=== PATIENT | male | born 1960 | race Caucasian/White ===

== ENCOUNTER 2021-09-24 08:14 | Emergency (ER) | payer SELFPAY ==
[~2021-09-24] VITALS: Ht 185.4 cm; Wt 77.1 kg
[2021-09-24 08:57] LABS: BASO % 0.5 % (0.0-1.0); EOS # 0.1 10*3/uL (0.0-0.4); EOS % 1.4 % (1.0-4.0); HEMATOCRIT 49.5 % (42.0-52.0); LYMPH % 22.1 % (27.0-41.0); MEAN CELL VOLUME 87.9 fl (80.0-94.0); MEAN CORPUSCULAR HGB 29.1 pg (27.0-31.0); MEAN CORPUSCULAR HGB CONC 33.1 g/dl (33.0-37.0); MEAN PLATELET VOLUME 8.9 fl (9.6-12.3); MONO # 0.6 10*3/uL (0.1-1.0); NEUT # 2.8 10*3/uL (2.3-7.9); NEUT % 62.8 % (47.0-73.0); PLATELET COUNT AUTOMATED 141 10*3/uL (130-400); RED BLOOD COUNT 5.63 10*6/uL (4.50-5.90); RED CELL DISTRI WIDTH 14.2 % (0-14.5); WHITE BLOOD COUNT 4.4 10*3/uL (4.8-10.8)
[2021-09-24 09:14] LABS: ACT PARTIAL THROMBO TIME 34.7 SECONDS (20.0-32.1)
[2021-09-24 09:18] LABS: ALBUMIN 3.6 gm/dl (3.1-4.5); ALKALINE PHOSPHATASE 99 U/L (45-117); BUN 15 mg/dl (7-24); CHLORIDE 109 mmol/L (98-107); CREATININE 0.94 mg/dL (0.70-1.30); LIPASE 104 U/L (73-393); SGOT/AST 42 IU/L (3-35); SGPT/ALT 43 U/L (12-78); SODIUM 138 mmol/L (136-145); TOTAL PROTEIN 7.7 gm/dL (6.4-8.2)
== END 2021-09-24 10:36 | disposition home or self-care (01) ==
LOC: ED 08:14
PROVIDERS: Emergency Medicine
DX: U07.1 COVID-19 (principal)

== ENCOUNTER 2022-02-22 09:28 | Emergency (ER) | payer SELFPAY ==
[~2022-02-22] VITALS: Ht 182.8 cm; Wt 72.6 kg
[2022-02-22] MEDS ORDERED: TYLENOL325 M1 PO (10:10)
[2022-02-22] MEDS ORDERED: VOLTAREN ARTHRI20 GM T (10:10)
[2022-02-22] MEDS ORDERED: Motrin,Rufen400 MG PO (10:10)
== END 2022-02-22 10:13 | disposition home or self-care (01) ==
LOC: ED 09:28
DX: S49.91XA Unspecified injury of right shoulder and upper arm, initial encounter (principal); X50.1XXA Overexertion from prolonged static or awkward postures, initial encounter; Y93.89 Activity, other specified; Y92.89 Other specified places as the place of occurrence of the external cause; Y99.9 Unspecified external cause status